=== PATIENT | female | born 1970 | race Caucasian/White ===

== ENCOUNTER → 2018-03-31 | Outpatient (CLI) | payer OTHER, MEDICAID ==
[~2018-03-31] MED LIST: IOPAMIDOL (ISOVUE-300) 100 ML BTL ONE
== END ==
LOC: CIMAGING 10:31
PROVIDERS: ATTEND Family Medicine
DX: I31.3 Pericardial effusion (noninflammatory) (principal); K59.00 Constipation, unspecified; D17.71 Benign lipomatous neoplasm of kidney
CPT/HCPCS: 74177; Q9967

== ENCOUNTER → 2018-05-10 | Outpatient (CLI) | payer OTHER, MEDICAID | LOC: BHFA 14:00 | PROVIDERS: ATTEND Internal Medicine Cardiovascular Disease | DX: I31.3 Pericardial effusion (noninflammatory) (principal) ==

== ENCOUNTER 2018-09-21 12:42 | Emergency (ER) | payer OTHER, MEDICAID ==
[2018-09-21 13:45] LABS: PLATELET COUNT 137 10^3/uL (150-400)
--- NOTE | 2018-09-21 13:46 | EDPHY ---
General Time Seen by Provider: 09/21/18 13:32 Narrative: CLINICAL IMPRESSION: Diarrhea ASSESSMENT/PLAN: 47-year-old female presents to the emergency department with complaints of intermittent diarrhea, intermittent ear pressure and tinnitus in the setting of treatment for C diff and H pylori. She is taking tetracycline and Flagyl. She has also been taking Pepto-Bismol and after speaking to the [facility] was concerned about her salicylate level. Vital signs stable, no signs of severe dehydration, abdomen soft without focal peritoneal findings. Labs show no evidence of severe electrolyte imbalance, metabolic disturbance, salicylate intoxication, or renal insufficiency. Patient is established with Gastroenterology and I advised she follow up with them. She plans to discontinue tetracyclines but will continue Flagyl. PCP follow-up recommended, warning signs return to ED sooner outlined in discharge. DIFFERENTIAL DX: Differential includes but not limited to dehydration, GI bleeding, anemia, electrolyte imbalance, metabolic disturbance, salicylate intoxication ED PROCEDURES: See lab and/or imaging results below ED COURSE: 2:00 p.m.: Labs reviewed by myself. Normal salicylate level, no significant electrolyte imbalance, renal insufficiency, anemia. Mild leukopenia noted. Recommend PCP recheck CHIEF COMPLAINT: Wants level's checked HPI: 47-year-old female presents to the emergency department requesting a salicylate level check. Patient reports she is being treated for H pylori with tetracyclines as well as C diff with Flagyl. She has also been taking omeprazole and Pepto-Bismol. She states she has had 5-7 episodes of nonbloody diarrhea for the last several days and believes this is making her feel poorly. She plans on stopping the tetracyclines. She has had some intermittent pressure and ringing in the ears. She has also been on a ketogenic diet and has not been eating as much. No reports of chest pain or shortness of breath. No headache, dizziness, vertigo, vision changes or altered mental status. She reports continued daily reflux symptoms. PAST MEDICAL HISTORY: C diff, H pylori See triage summary and nurse notes for addition applicable history Pertinent Past Surgical History: None reported Family History: None reported Social History: Otherwise healthy, denies smoking and alcohol REVIEW OF SYSTEMS: A full 10 point review of systems was negative except for those mentioned in HPI. PHYSICAL EXAM: General Appearance: Alert, oriented, appropriate, cooperative, NAD, well hydrated, non-toxic appearing, VSS, no hypoxia. HEENT: Oropharynx clear is no erythema or exudates, no tonsillar hypertrophy or asymmetry. Dentition without abnormality. Neck: Supple, nontender, no lymphadenopathy, no midline pain, FROM, no meningismus. Respiratory: There are no retractions, lungs are clear to auscultation. Cardiac: Regular rate and rhythm, no murmurs or gallops. Gastrointestinal: Abdomen is soft, nontender, bowel sounds normal, no masses/ hernia, no rigidity, guarding or focal peritoneal findings. Skin: Warm, dry, no rashes, no nodules on palpation. MEDICAL DECISION MAKING: Patient was seen independently. Secondary supervising physician at time of evaluation was: Dr. Vigil. Diagnosis: Diarrhea. New, requires workup Summary: See Assessment and Plan for summary of ED visit Clinical lab tests: ordered / reviewed. Patient Progress: Improved, stable for discharge. - History Smoking Status: Never smoked - Objective Vital Signs: Initial Vital Signs Temperature (C) 36.7 C 09/21/18 12:47 Heart Rate 90 09/21/18 12:47 Respiratory Rate 18 09/21/18 12:47 Blood Pressure 107/73 09/21/18 12:47 O2 Sat (%) 97 09/21/18 12:47 O2 Delivery Mode Room Air Allergies/Adverse Reactions: erythromycin base [Erythromycin Base] Allergy (Unknown, Verified 09/21/18 12:45) Sulfa (Sulfonamide Antibiotics) [Sulfa(Sulfonamide Antibiotics)] Allergy ( Unknown, Verified 09/21/18 12:45) Home Medications: Medication Instructions Recorded Flagyl 09/21/18 Omeprazole 09/21/18 Pepto Bismol 09/21/18 Tetracycline HCl 09/21/18 Laboratory Results: Laboratory Results 09/21/18 13:10 09/21/18 13:10 09/21/18 09/21/18 13:10 13:10 WBC 3.63 10^3/uL L 10^3/uL (3.80-9.50) RBC 4.97 10^6/uL 10^6/uL (4.18-5.33) Hgb 15.1 g/dL g/dL (12.6-16.3) Hct 43.8 % % (38.0-47.0) MCV 88.1 fL fL (81.5-99.8) MCH 30.4 pg pg (27.9-34.1) MCHC 34.5 g/dL g/dL (32.4-36.7) RDW 12.3 % % (11.5-15.2) Plt Count 137 10^3/uL L 10^3/uL (150-400) MPV 9.6 fL fL (8.7-11.7) Neut % (Auto) 63.1 % % (39.3-74.2) Lymph % (Auto) 21.2 % % (15.0-45.0) Merrick % (Auto) 13.2 % H % (4.5-13.0) Eos % (Auto) 0.8 % % (0.6-7.6) Baso % (Auto) 1.1 % % (0.3-1.7) Nucleat RBC Rel Count 0.0 % % (0.0-0.2) Absolute Neuts (auto) 2.29 10^3/uL 10^3/uL (1.70-6.50) Absolute Lymphs (auto) 0.77 10^3/uL L 10^3/uL (1.00-3.00) Absolute Monos (auto) 0.48 10^3/uL 10^3/uL (0.30-0.80) Absolute Eos (auto) 0.03 10^3/uL 10^3/uL (0.03-0.40) Absolute Basos (auto) 0.04 10^3/uL 10^3/uL (0.02-0.10) Absolute Nucleated RBC 0.00 10^3/uL 10^3/uL (0-0.01) Immature Gran % 0.6 % % (0.0-1.1) Immature Gran # 0.02 10^3/uL 10^3/uL (0.00-0.10) Sodium 135 mEq/L mEq/L (135-145) Potassium 4.0 mEq/L mEq/L (3.5-5.2) Chloride 109 mEq/L mEq/L (97-110) Carbon Dioxide 16 mEq/l L mEq/l (22-31) Anion Gap 10 mEq/L mEq/L (6-14) BUN 23 mg/dL mg/dL (7-23) Creatinine 0.8 mg/dL mg/dL (0.6-1.0) Estimated GFR > 60 Glucose 104 mg/dL H mg/dL (70-100) Calcium 9.6 mg/dL mg/dL (8.5-10.4) Salicylates < 1.0 mg/dL L mg/dL (2.0-20.0) Departure - Departure Disposition: Home, Routine, Self-Care Clinical Impression: Diarrhea Qualifiers: Diarrhea type: unspecified type Qualified Code(s): R19.7 - Diarrhea, unspecified Condition: Good Instructions: Acute Diarrhea (ED) Additional Instructions: DISCHARGE INSTRUCTIONS FROM YOUR DOCTOR Thank you for visiting our emergency department today. You were treated by a physician supply chain assistant today and your case was reviewed with our ED Attending physician. Please keep in mind that discharge from the emergency department does not mean that there is nothing wrong - it simply means that we have not identified an emergency condition that requires further evaluation or treatment in the hospital. You should always plan to follow up with primary care for re- evaluation of your condition in the next 2-3 days. If you have been referred to a specialist, please call as soon as possible (today or tomorrow) to schedule your follow up appointment at the appropriate time. LABORATORY EVALUATION IS REASSURING, NORMAL KIDNEY FUNCTION, NO SIGNIFICANT ELECTROLYTE IMBALANCE, SALICYLATE LEVEL IS NEGATIVE. YOU CAN CONSIDER TRYING ZANTAC OR PEPCID AC 1-2 TIMES DAILY FOR HEARTBURN. PLEASE FOLLOW-UP WITH HER PRIMARY ROLL SCALE WORKER. CONSULT WITH HER PRIMARY CARE DOCTOR REGARDING H PYLORI TREATMENT. RETURN TO THE EMERGENCY DEPARTMENT FOR WORSENING PAIN, PERSISTENT VOMITING OR DIARRHEA, BLOODY STOOLS, FEVERS, OR ANY OTHER CONCERN. People present with illnesses and injuries in different ways, and it is always possible that we have missed something. You may always return for re-evaluation if symptoms worsen or if they are not improving or if you develop new/different symptoms. Again, thank you for choosing our emergency department. We hope that you feel better. Referrals: Yesenia Pollock MD [Primary Care Provider] - As per Instructions Lisa Pedraza MD [Medical Doctor] - As per Instructions
[2018-09-21 14:43] VITALS: BP 114/63
== END 2018-09-21 14:41 | disposition home or self-care (01) ==
DX: R19.7 Diarrhea, unspecified (principal); Z79.899 Other long term (current) drug therapy
CPT/HCPCS: G0480